=== PATIENT | male | born 1980 | race African-American/Black ===

== ENCOUNTER 2018-05-03 14:01 | Emergency (ER) | payer MEDICAID ==
[~2018-05-03] VITALS: Ht 175.3 cm; Wt 71.7 kg
[~2018-05-03 14:01] MED LIST: ACETAMINOPHEN-1 EAC1 ORAL; CYCLOBENZAPRINE10 MG ORAL; IBUPROFEN600 MG ORAL
[2018-05-03] MEDS ORDERED: Naproxen 500mg tab ORAL ONE (14:30)
[2018-05-03 15:07] LABS: APPEARANCE,URINE CLEAR; BILIRUBIN, URINE NEGATIVE (NEGATIVE); COLOR,URINE AMBER; GLUCOSE, URINE (UA) NEGATIVE (NEGATIVE); KETONES,URINE NEGATIVE (NEGATIVE); LEUKOCYTE ESTERASE ,URINE 1+ (NEGATIVE); NITRITE,URINE NEGATIVE (NEGATIVE); PH,URINE 6.5 (4.5-8.0); PROTEIN,URINE 1+ (NEGATIVE); UROBILINOGEN,URINE 4 MG/DL (0.0-1.0)
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
[2018-05-03] MEDS ORDERED: NAPROXEN500 M2 ORAL (15:32)
[2018-05-03 15:53] VITALS: BP 127/88
--- NOTE | 2018-05-04 13:25 | Diagnostic Imaging Report ---
Indication: Pain, trauma Technique: XRAY L Spine Ltd Comparison: Images of the lumbar spine from CT of the abdomen and pelvis 04/24/2015 Findings: Bone mineralization appears within normal limits. There are 5 nonrib-bearing lumbar-type vertebral bodies, assuming 12 paired ribs. There is mild apex to the right scoliosis of the lumbar spine. Lumbar lordosis is maintained. Vertebral body heights are maintained. There is no evidence of acute fracture. Disc spaces are maintained. Sacroiliac joints and hip joints are maintained. Bowel gas pattern unremarkable. No radiopaque foreign body seen. Impression: No evidence of acute fracture or traumatic malalignment.
--- NOTE | 2018-05-04 13:27 | Diagnostic Imaging Report ---
Indication: Pain, trauma Technique: XRAY C Spine 2-3v Comparison: None Findings: Bony mineralization is within normal limits. There is straightening of the cervical lordosis. Vertebral body heights and disc spaces are maintained. No evidence of acute fracture. No dense fracture noted on open-mouth view. Anterior and lateral atlantodental intervals within normal limits. No prevertebral soft tissue abnormality is evident. Portions of the lung apices, mastoid air cells and paranasal sinuses are grossly clear. No retained radiopaque foreign body identified. Impression: Mild straightening of the cervical lordosis. No evidence of acute fracture.
== END 2018-05-03 15:53 | disposition home or self-care (01) ==
LOC: EMR 15:47
DX: S16.1XXA Strain of muscle, fascia and tendon at neck level, initial encounter (principal); R40.2410 Glasgow coma scale score 13-15, unspecified time; V49.49XA Driver injured in collision with other motor vehicles in traffic accident, initial encounter; Y92.410 Unspecified street and highway as the place of occurrence of the external cause; Y93.9 Activity, unspecified; Y99.9 Unspecified external cause status
CPT/HCPCS: 72020; 72040; 81001; 99284

== ENCOUNTER 2019-07-29 17:35 | Emergency (ER) | payer MEDICAID ==
[~2019-07-29] VITALS: Ht 175.3 cm; Wt 70.3 kg
[~2019-07-29 17:35] MED LIST changes: +NAPROXEN500 M2 ORAL
[2019-07-29 17:55] VITALS: BP 134/94
--- NOTE | 2019-07-29 17:55 | NUR ---
ED Nurse Note: Patient walked in to ER c/o being light headed tongue feels pasty and dizzy. Denies any vomiting or blurring of vision. No SOB. Breathing even and unlabored. Afebrile. VSS.
--- NOTE | 2019-07-29 19:20 | NUR ---
HAND-OFF: Report given to Grace JACOBSEN.
--- NOTE | 2019-07-29 19:46 | Emergency Room Report ---
History of Present Illness General Chief Complaint: Dizziness Source: Patient Present Illness HPI 39 YO male presents to the ED C/O intermittent "dizziness" x 3 days. Pt. reports felt it twice on the two days prior. Pt. states he has been "feeling weird" all day today. He denies vertigo. He denies HOSKINS or pain. He describes his dizziness as feeling off balance. Pt. reports he has not had much of an appetite and has not eaten today. He had soup just once yesterday. He reports nausea but denies vomiting. Pt. denies visual changes, tinnitus, or syncope. He denies CP or palpitations. Pt. reports recent right lower molar extraction last week and didnt really finish all of his abx. pt. reports dentist told him if it doesn't hurt, then he doesn't need to take the amoxicillin. PT. reports pressure sensation in the right ear. He denies head trauma or fall. He denies past medical hx. He denies nausea or vomiting. Denies fevers or chills. Pt. reports that while waiting to be seen his symptoms resolved, and he was going to get in an Uber and go home. He stayed only because it was "surging" in [place]. Allergies: Coded Allergies: No Known Allergies (Unverified , 04/24/15) Patient History Past Medical History: see triage record Past Surgical History: none Pertinent Family History: none Immunizations: UTD Reviewed Nursing Documentation: PMH: Agreed; PSxH: Agreed Nursing Documentation-PMH Past Medical History: No Stated History Review of Systems All Other Systems: negative except mentioned in HPI Physical Exam Vital Signs Date Time Temp Pulse Resp B/P (MAP) Pulse Ox O2 Delivery O2 Flow Rate FiO2 07/29/19 17:49 97.5 94 22 134/94 (107) 97 Room Air Sp02 EP Interpretation: reviewed, normal General Appearance: no apparent distress, alert, GCS 15, non-toxic Head: normocephalic, atraumatic Eyes: bilateral eye normal inspection, bilateral eye PERRL ENT: hearing grossly normal, normal voice, TMs + canals normal, nasal congestion Neck: full range of motion, no meningismus, no bony tend Respiratory: lungs clear, normal breath sounds, no wheezing, speaking full sentences Cardiovascular #1: regular rate, rhythm Musculoskeletal: normal range of motion, gait/station normal, non-tender Neurologic: alert, motor strength/tone normal, concrete form setter and finisher III-XII nml as tested, oriented x3, sensory intact, cerebellar normal, responsive, speech normal, other - No focal neurological deficits. Normal finger to nose. Normal gait. Normal rhomberg. Inability to illicit symptoms at this time. No nystagmus. No facial droop, normal speech. Psychiatric: judgement/insight normal Skin: no rash Lymphatic: no adenopathy Medical Decision Making PA Attestation Dr. Wyman is my supervising Physician whom patient management has been discussed with. Diagnostic Impression: Primary Impression: Dizziness ER Course 39 YO male presents to the ED C/O intermittent "dizziness" x 3 days. Pt. reports felt it twice on the two days prior. Pt. states he has been "feeling weird" all day today. He denies vertigo. He denies HOSKINS or pain. He describes his dizziness as feeling off balance. Pt. reports he has not had much of an appetite and has not eaten today. He had soup just once yesterday. He reports nausea but denies vomiting. Pt. denies visual changes, tinnitus, or syncope. He denies CP or palpitations. Pt. reports recent right lower molar extraction last week and didnt really finish all of his abx. pt. reports dentist told him if it doesn't hurt, then he doesn't need to take the amoxicillin. PT. reports pressure sensation in the right ear. He denies head trauma or fall. He denies past medical hx. He denies nausea or vomiting. Denies fevers or chills. Pt. reports that while waiting to be seen his symptoms resolved, and he was going to get in an Uber and go home. He stayed only because it was "surging" in [place]. . Ddx considered but are not limited to Mnire's, BPPV, labyrinthitis, cerebellar stroke, hypovolemia,hypoglycemia, or cardiac cause. Vital signs: are WNL, pt. is afebrile H&PE are most consistent with : transient light headedness. NAD, non-toxic in appearance. No focal neurological deficits. Normal finger to nose. Normal gait. Normal rhomberg. Inability to illicit symptoms at this time. No focal deficit to indicate TIA or CVA. No vertical nystagmus. Because of lack of focality and red flags, I see no need for CT scan. We'll discharge home if EKG is normal. ORDERS: -EK bpm NSR ED INTERVENTIONS: -PT. given juice and sandwich as he hasn't eaten all day. -I do not identify an emergent condition at this time. With current presentation , pt. is stable for close outpatient follow up and conservative treatment. D/ w pt. to return promptly to ED with worsening or new symptoms.- Pt. verbalizes' understanding and agreement with proposed treatment plan. DISCHARGE: At this time pt. is stable for d/c to home. Will provide printed patient care instructions, and any necessary prescriptions. Care plan and follow up instructions have been discussed with the patient prior to discharge. EKG Diagnostic Results EP Interpretation: Dr. Wyman Rate: normal - 87 bpm Rhythm: NSR ST Segments: no acute changes ASA given to the pt in ED: No PA Scribe Text Maureen JEFFERSON-Sudhir Last Vital Signs Date Time Temp Pulse Resp B/P (MAP) Pulse Ox O2 Delivery O2 Flow Rate FiO2 07/29/19 17:55 97.5 94 22 134/94 97 Room Air Status: improved Disposition: HOME, SELF-CARE Condition: Stable Scripts Pseudoephedrine Hcl* (NEXAFED*) 30 Mg Tablet 30 MG ORAL Q6H, #30 TAB Prov: Maureen Gay 07/29/19 Patient Instructions: Dizziness, Medical Screening Exam Additional Instructions: ~ ~ An emergent medical condition has not been identified based on this patients presentation, exam and any necessary testing/imaging. The patient is determined to be stable for outpatient follow-up and management of symptoms by a primary care provider. Take medications as directed. Follow up with a Primary Care Provider in 3-5 days, even if your symptoms have resolved. --Please review list of primary care clinics, if you do not already have a primary care provider Return sooner to ED if new symptoms occur, or current symptoms become worse. - Please note that this Emergency Department Report was dictated using [employer] inform[employer] analyst technology software, occasionally this can lead to erroneous entry secondary to interpretation by the dictation equipment. Maureen Gay Jul 29, 2019 19:46
[2019-07-29] MEDS ORDERED: NEXAFED30 MG ORAL (19:47)
[2019-07-29 19:58] VITALS: BP 134/94
--- NOTE | 2019-07-29 20:01 | NUR ---
ER DISCHARGE NOTE: Patient is cleared to be discharged per SHARATH BURT , pt is aox4, on room air, with stable vital signs. pt was given dc and prescription instructions, pt was able to verbalize understanding, pt id band removed without complications. pt is able to ambulate with steady gait. pt took all belongings.
--- NOTE | 2019-07-31 13:48 | Cardiology Report ---
APPROVED REPORT EKG Measurement Heart [id number] Normal sinus rhythm Rightward axis Borderline ECG
== END 2019-07-29 19:58 | disposition home or self-care (01) ==
LOC: EMR 18:38
DX: R42 Dizziness and giddiness (principal)
CPT/HCPCS: 93005; Z7502; 99283